=== PATIENT | female | born 1950 | race Caucasian/White ===

== ENCOUNTER 2017-03-31 15:38 | Emergency (ER) | payer OTHER ==
[2017-03-31 15:41] VITALS: BP 135/77; BMI 23.0
--- NOTE | 2017-03-31 17:02 | DR.GENAD ---
HPI - PCP Primary Care Physician: JAYNE ARLINGTON - Complaint/Symptoms Chief Complaint Doctors Comments: Patient presents with complaint of possible sinusitis and uti. She has a history of chronic sinusitis and recurrent UTI. She denies urinary frequency of dysuris. Admits to maxillary tenderness. Chief Complaint:: PATIENT STATED THAT SHE DOESN'T FEEL GOOD. THAT SHE THINKS SHE HAS SINUS INFECTION AND A UTI - Source History Provided: Patient - Mode of Arrival Mode of Arrival: Ambulatory - Timing Onset of Chief Complaint: 03/29/17 PMH - PMH Past Medical History: Yes Past Medical History: Depression Past Surgical History: Yes Surgical History: Ortho Surgery - Family History History of Family Medical Conditions: No - Social History Does patient currently use any type of tobacco product: No Have you used tobacco products in the last 12 months: No Type of Tobacco Use: None Does any household member use tobacco: No Alcohol Use: None Do you use any recreational Drugs:: No Lives With: Family Lives Where: Home - infectious screening In the last 2 months have you had wt loss of >10#?: NO Have you had fever, night sweats or hemotysis?: No Have you traveled outside the country in the last 6 months?: No Isolation: Standard ROS - Review of Systems Constitutional: No Symptoms Reported Eyes: No Symptoms Reported ENTM: No Symptoms Reported Respiratoy: No Symptoms Reported Cardiovascular: No Symptoms Reported Gastrointestinal/Abdominal: No Symptoms Reported Genitourinary: No Symptoms Reported Neurological: No Symptoms Reported Musculoskeletal: No Symptoms Reported Integumentary: No Symptoms Reported Hematologic/Lymphatic: No Symptoms Reported Endocrine: No Symptoms Reported Psychiatric: No Symptoms Reported All Other Systems: Reviewed and Negative PE - Vital Signs Vitals: Temperature 97.4 F Pulse Rate 83 Respiratory Rate 20 Blood Pressure 135/77 O2 Sat by Pulse Oximetry 98 - General Limitations: No Limitations General Appearance: Alert, In No Apparent Distress - Head Head Exam: Normal Inspection, Atraumatic - Eyes Eye exam: Normal Appearance, PERRL, EOMI - ENT ENT Exam: Normal Exam, Normal Oropharynx External Ear Exam: Normal External Inspection TM/Canal Exam: Bilateral Normal Nose Exam: Normal Nose Exam, Sinus Tenderness Mouth Exam: Normal Inspection Throat Exam: Normal Inspection - Neck Neck Exam: Normal Inspection, Full ROM - Chest Chest Inspection: Normal Inspection - Respiratory Respiratory Exam: Normal Lung Sounds Bilat Respiratory Exam: Bilateral Clear to Auscultation - Cardiovascular Cardiovascular Exam: Regular Rate, Normal Rhythm - Abdominal Exam Abdominal Exam: Normal Inspection Abdominal Tenderness: negative: RUQ, RLQ, LUQ, LLQ, Epigastrium, Suprapubic, Diffuse, Mild, Moderate, Severe, Other - Extremities Extremities Exam: Normal Inspection, Full ROM - Back Back Exam: Normal Inspection, Full ROM - Neurologic Neurological Exam: Alert, Oriented X3, CN II-XII Intact - Psychiatric Psychiatric Exam: Normal Affect, Normal Mood - Skin Skin Exam: Warm, Dry Course - Education/Counseling Educated On: Treatment, Diagnosis, Needs for Follow Up ROR - Labs Reviewed Laboratory Results Reviewed?: Yes (UA:wbc 12-15, Leuk 2+,Nit +,Bld+1) Laboratory: Specimen Type Clean catch urine 03/31/17 17:17 Urine Color Yellow (YELLOW) 03/31/17 17:17 Urine Appearance Hazy (CLEAR) 03/31/17 17:17 Urine pH 6.0 (5.0 - 8.0) 03/31/17 17:17 Ur Specific [place] 1.015 (1.000-1.030) 03/31/17 17:17 Urine Protein Negative (NEGATIVE) 03/31/17 17:17 Urine Glucose (UA) Negative (NEGATIVE) 03/31/17 17:17 Urine Ketones Negative (NEGATIVE) 03/31/17 17:17 Urine Occult Blood 1+ (NEGATIVE) 03/31/17 17:17 Urine Nitrite Positive (NEGATIVE) 03/31/17 17:17 Urine Bilirubin Negative (NEGATIVE) 03/31/17 17:17 Urine Urobilinogen Normal (NORMAL) 03/31/17 17:17 Ur Leukocyte Esterase 2+ (NEGATIVE) 03/31/17 17:17 Urine RBC 0 - 2 /HPF (NEGATIVE) 03/31/17 17:17 Urine WBC 12 - 15 /HPF (NEGATIVE) 03/31/17 17:17 Ur Squamous Epith Cells Moderate /HPF (NEGATIVE) 03/31/17 17:17 Urine Bacteria 2+ /HPF (NEGATIVE) 03/31/17 17:17 Ur Culture Indicated? Yes/culture set up 03/31/17 17:17 - XRAY XRAY Interpreted by: Radiologist (Ct Sinus: mild left maxillary sinusitis) - Diagnosis Discharge Problem: Left maxillary sinusitis UTI (urinary tract infection) Qualifiers: Urinary tract infection type: acute cystitis Hematuria presence: with hematuria Qualified Code(s): N30.01 - Acute cystitis with hematuria - Discharge Plan Condition: Stable - Follow ups/Referrals Follow ups/Referrals: ,Misc [Primary Care Provider] - 3 days - Instructions
[2017-03-31 17:36] LABS: BILIRUBIN,URINE NEGATIVE (NEGATIVE); BLOOD/HEMOGLOBIN,URINE 1+ (NEGATIVE); GLUCOSE, URINE NEGATIVE (NEGATIVE); KETONES,URINE NEGATIVE (NEGATIVE); LEUKOCYTE ESTERASE ,URINE 2+ (NEGATIVE); NITRITES,URINE POSITIVE (NEGATIVE); PROTEIN,URINE NEGATIVE (NEGATIVE); UROBILINOGEN,URINE NORMAL (NORMAL)
--- NOTE | 2017-03-31 17:39 | CT ---
History: Sinus pain and pressure Study: CT of the paranasal sinuses without contrast. Sagittal and coronal reformations were provided. Comparison: October 25, 2014 Findings: There is minimal mucosal thickening in the left maxillary sinus with mucous at the base of the left maxillary sinus. There is no bone destruction or erosion. The ethmoid and frontal and spheno id sinuses are grossly clear. There is no significant septal deviation. The ostiomeatal complexes are patent. The inferior turbinates are prominent in size. Impression: Mild left maxillary sinus disease Reported By:
[2017-03-31 17:46] LABS: APPEARANCE,URINE HAZY (CLEAR); BACTERIA,URINE 2+ /HPF (NEGATIVE); COLOR,URINE YELLOW (YELLOW); RBC,URINE 0 - 2 /HPF (NEGATIVE); SQUAMOUS EPITHELIAL CELL,UR MODERATE /HPF (NEGATIVE)
== END 2017-03-31 18:07 | disposition home or self-care (01) ==
LOC: ER 15:38
DX: J32.0 Chronic maxillary sinusitis (principal); N30.01 Acute cystitis with hematuria; B96.1 Klebsiella pneumoniae [K. pneumoniae] as the cause of diseases classified elsewhere
CPT/HCPCS: 70486; 81001; 87086; 87088; 87186; 99282